=== PATIENT | female | born 2005 | race Hispanic/Latino ===

== ENCOUNTER 2024-01-18 13:08 | Emergency (ER) | payer BC ==
[~2024-01-18] VITALS: Ht 165.1 cm; Wt 74.8 kg
[2024-01-18 13:51] LABS: BASOPHILS # (AUTO) 0.02 K/uL (0.00-0.20); BASOPHILS % (AUTO) 0.2 % (0.0-5.0); HEMATOCRIT 37.9 % (36-48); IMMATURE GRANULOCYTE ABSOLUTE 0.05 K/uL (0-1); LYMPHOCYTES # (AUTO) 1.7 K/uL (1.0-4.8); LYMPHOCYTES % (AUTO) 16.1 % (21.0-51.0); MEAN CORPUSCULAR HEMOGLOBIN 29.5 pg (27.0-33.0); MEAN CORPUSCULAR HGB CONC 33.5 g/dL (32.0-36.0); MEAN CORPUSCULAR VOLUME 87.9 fL (80-100); MONOCYTES # (AUTO) 0.6 K/uL (0.1-1.0); MONOCYTES % (AUTO) 6.2 % (3.0-13.0); NEUTROPHILS # (AUTO) 7.8 K/uL (1.8-7.7); PLATELET COUNT (AUTO) 225 K/uL (130-400); RED BLOOD CELL COUNT(AUTO) 4.31 MIL/uL (4.00-5.50); RED CELL DISTRIBUTION WIDTH 12.8 % (11.0-15.5); WHITE BLOOD COUNT (AUTO) 10.3 K/uL (4.8-10.8)
[2024-01-18 13:59] LABS: CREATININE 0.7 mg/dL (0.5-1.0); POTASSIUM 3.8 mmol/L (3.5-5.1)
[2024-01-18] MEDS: PANTOPrazole 40 MG/VIAL IVP ONE (14:03)
[2024-01-18] MEDS: Solu-medROL 125MG VIAL IVP ONE (14:03)
[2024-01-18] MEDS: 0.9%NACL 1000ML 1,000 ML IV ONE (14:03)
[2024-01-18 14:40] LABS: APPEARANCE,URINE CLEAR (CLEAR); BILIRUBIN,URINE NEGATIVE (NEGATIVE); COLOR,URINE COLORLESS (YELLOW); GLUCOSE, URINE (UA) NEGATIVE (NEGATIVE); KETONES,URINE NEGATIVE (NEGATIVE); LEUKOCYTE ESTERASE ,URINE NEGATIVE Leu/uL (NEGATIVE); NITRATE,URINE NEGATIVE (NEGATIVE); PROTEIN,URINE NEGATIVE (NEGATIVE); UROBILINOGEN,URINE 0.2 mg/dL (0.2-1.0)
[2024-01-18 14:43] LABS: ADD UA MICROSCOPIC YES
[2024-01-18 14:44] LABS: HCG,QUALITATIVE URINE NEGATIVE (NEGATIVE)
[2024-01-18 14:52] LABS: SQUAMOUS EPITHELIAL CELL,UR RARE /HPF (0-2)
[2024-01-18 15:04] VITALS: BP 129/80; PULSE 94; RESP 18; TEMP 98.2; O2SAT 98
== END 2024-01-18 15:08 | disposition home or self-care (01) ==
LOC: EDH 13:08
DX: T78.1XXA Other adverse food reactions, not elsewhere classified, initial encounter (principal); Z91.013 Allergy to seafood; X58.XXXA Exposure to other specified factors, initial encounter
CPT/HCPCS: 99284; 96374; 96361; 96375; 80048; 85025; 81001; 81025; 36415; J7030; J2919; J2470